=== PATIENT | female | born 1965 | race African-American/Black ===

== ENCOUNTER 2025-08-04 13:13 | Emergency (ER) | payer MEDICAID ==
[~2025-08-04] VITALS: Ht 175.3 cm; Wt 54.0 kg
[2025-08-04 13:16] VITALS: O2SAT 100
[2025-08-04] MEDS: ASPIRIN 81MG TABLET PO ONE (13:42)
[2025-08-04 13:51] LABS: BASOPHILS % 0.7 % (0.0-2.0); EOSINOPHILS % 0.4 % (0.0-5.0); HEMATOCRIT. 34.1 % (36.0-48.0); HEMOGLOBIN. 11.3 g/dL (12.0-16.0); LYMPHOCYTES % 26.7 % (20.0-50.0); MEAN PLATELET VOLUME 7.7 fl (7.4-10.4); MONOCYTES % 5.5 % (2.0-8.0); NEUTROPHILS % 66.7 % (40.0-76.0); PLATELET 318 x1000/uL (130-400); RED BLOOD CELL COUNT 3.80 mill/uL (4.2-5.4); RED CELL DISTRIBUTION WIDTH 14.1 % (11.6-14.6)
[2025-08-04 14:05] LABS: CREATININE 0.7 mg/dL (0.6-1.0); UREA NITROGEN BLOOD 8 mg/dL (9-23)
[2025-08-04 14:07] LABS: ASPARTATE AMINOTRANSFERASE 167 IU/L (<34); BILIRUBIN DIRECT 0.5 mg/dL (<=3.0); BILIRUBIN TOTAL 1.4 mg/dL (0.1-1.0); TROPONIN I HIGH SENSITIVITY < 4 ng/L (3.0-34)
[2025-08-04 14:08] LABS: PROTEIN TOTAL 7.3 g/dL (6.0-8.3)
[2025-08-04 14:15] LABS: INR 1.0
[2025-08-04] MEDS: ONDANSETRON HCL 4MG/2ML INJ IV ONE (14:46)
[2025-08-04] MEDS: FAMOTIDINE 20MG TABLET PO ONE (14:46)
[2025-08-04] MEDS: MAGNESIUM/ALUMINUM HYDROXIDE/SIMETHICONE 30ML UDC PO ONE (14:46)
[2025-08-04] MEDS ORDERED: FAMO-135 MT (15:20)
[2025-08-04] MEDS ORDERED: ONDA-239 PO (15:20)
[2025-08-04 15:30] VITALS: BP 128/85; PULSE 83; RESP 14; TEMP 36.7; O2SAT 98
== END 2025-08-04 15:36 | disposition home or self-care (01) ==
LOC: ER 13:13
DX: A08.4 Viral intestinal infection, unspecified (principal); F17.200 Nicotine dependence, unspecified, uncomplicated; I10 Essential (primary) hypertension; J44.9 Chronic obstructive pulmonary disease, unspecified
CPT/HCPCS: 80076; 80048; 83880; 83690; 83735; 85025; 85610; 85730; 84484; 36415; 71045; 93005; 96374; 99285; Z7610; J2405